=== PATIENT | male | born 1935 | race Caucasian/White ===

== ENCOUNTER 2019-09-15 15:21 | Emergency (ER) | payer MEDICARE ==
--- NOTE | 2019-09-15 15:42 | ERPHSYRPT ---
- History of Present Illness Time Seen by Provider: 09/15/19 15:41 Source: patient, family Patient Subjective Stated Complaint: pt here for a fall today, he was going to the dr when he he fell instead he was brought to the er, pt is yelling at staff and times, saying this is bullshit, im not hurt, he was brought in by cab and hes daughter followed him. he is a poor historian, denies any injury from fall Triage Nursing Assessment: pt alert, pt oriented to person,place and time, skin w/d/p. resp easy, chest clear, abd soft Physician History: This is an 84-year-old gentleman well who fell this morning at approximately 11: 30 AM. Called out and his daughter came to his attention. Able to lift him he was able to help himself up. Patient's daughter states that the patient has become more confused recently and has fallen more frequently. Type to the emergency room via a transportation service. Patient is very weak and confused. Eyes chest pain, denies abdominal pain, nausea vomiting diarrhea Occurred: just prior to arrival Reason for Fall: fell from standing pos Injuries/Pain Location: no injury Loss of Consciousness: no loss of consciousness Severity of Pain-Max: mild Severity of Pain-Current: mild (generalized) Associated Symptoms (Fall): confusion, dizziness Allergies/Adverse Reactions: No Known Drug Allergies Allergy (Unverified 09/15/19 17:27) Home Medications: Celecoxib 100 mg [celeBREX 100 MG] 1 ea DAILY 09/15/19 [History] Diazepam 1 ea TID 09/15/19 [History] Gabapentin 300 mg TID 09/15/19 [History] Hydrocodone/Acetaminophen [Lilly 10-325 Tablet] 1 ea QID 09/15/19 [History] Niacin [Niacin ER] 1 ea DAILY 09/15/19 [History] Ropinirole HCl 0.5 mg [Requip 0.5 MG] 1 ea DAILY 09/15/19 [History] Rosuvastatin Calcium 1 ea DAILY 09/15/19 [History] Tamsulosin HCl 1 ea DAILY 09/15/19 [History] Hx Influenza Vaccination/Date Given: Yes Hx Pneumococcal Vaccination/Date Given: Yes Immunizations Up to Date: Yes - Review of Systems Constitutional: No Symptoms Eyes: No Symptoms Ears, Nose, & Throat: No Symptoms Respiratory: No Symptoms Cardiac: No Symptoms Abdominal/Gastrointestinal: No Symptoms Genitourinary Symptoms: No Symptoms Musculoskeletal: Arthralgias, Fall, Myalgias Skin: No Symptoms Neurological: No Symptoms Psychological: No Symptoms Endocrine: No Symptoms Hematologic/Lymphatic: No Symptoms Immunological/Allergic: No Symptoms All Other Systems: Reviewed and Negative - Past Medical History Pertinent Past Medical History: Yes Neurological History: Dementia ENT History: No Pertinent History Cardiac History: No Pertinent History Respiratory History: No Pertinent History Endocrine Medical History: No Pertinent History Musculoskeletal History: No Pertinent History GI Medical History: No Pertinent History, GERD History: No Pertinent History Psycho-Social History: No Pertinent History Male Reproductive Disorders: No Pertinent History Other Medical History: post polio syndrome, restless syndrom - Past Surgical History Past Surgical History: Yes Neuro Surgical History: No Pertinent History Cardiac: No Pertinent History Respiratory: No Pertinent History Gastrointestinal: Appendectomy, Cholecystectomy Genitourinary: No Pertinent History Musculoskeletal: No Pertinent History Male Surgical History: No Pertinent History Other Surgical History: leg stent - Social History Smoking Status: Former smoker Exposure to second hand smoke: No Drug Use: none Patient Lives Alone: No - Nursing Vital Signs Nursing Vital Signs: Initial Vital Signs Temperature 98.0 F 09/15/19 15:32 Pulse Rate 83 09/15/19 15:32 Respiratory Rate 20 09/15/19 15:32 Blood Pressure 110/57 09/15/19 15:32 O2 Sat by Pulse Oximetry 92 L 09/15/19 15:32 Pain Scale Pain Intensity 0 - [place] Coma Score Best Eye Response ([place]): (4) open spontaneously Best Verbal Response ([place]): (5) oriented Best Motor Response ([place]): (6) obeys commands [place] Total: 15 - Physical Exam General Appearance: mild distress, lethargy Head Injury: no evidence of injury Eye Exam: PERRL/EOMI, eyes nml inspection ENT Exam: airway nml, nml ext.inspection Neck Exam: supple, trachea midline, full range of motion, normal alignment Respiratory/Chest Exam: normal breath sounds, No chest tenderness, No respiratory distress Cardiovascular Exam: normal heart sounds, regular rate/rhythm Gastrointestinal Exam: soft, normal bowel sounds, No tenderness Rectal Exam: not done Back Exam: normal inspection, normal range of motion, No CVA tenderness, No vertebral tenderness Extremity Exam: normal inspection, normal range of motion, pelvis stable Neurologic Exam: cooperative, laboratory supervisor II-XII nml as tested Skin Exam: normal color, warm, dry SpO2 Interpretation: borderline oxygenation SpO2: 92 - Course Nursing assessment & vital signs reviewed: Yes EKG Interpreted by Me: RATE (82), Sinus Rhythm, NORMAL AXIS, LAFB, NORMAL INTERVALS, 1st degree AV Block, Right Bundle Branch Block Ordered Tests: Active Orders 24 hr Category Date Time Status Catheter-[place] STAT Care 09/15/19 16:16 Active EKG-ER Only STAT Care 09/15/19 16:16 Active IV Insertion STAT Care 09/15/19 16:16 Active NPO (ED) STAT Care 09/15/19 16:16 Active Pulse Oximetry (ED) STAT Care 09/15/19 16:16 Active CHEST 1 VIEW (PORTABLE) Stat Exams 09/15/19 16:16 Completed HEAD WITHOUT CONTRAST [CT] Stat Exams 09/15/19 16:17 Completed ABG [ARTERIAL BLOOD GASES] Stat Lab 09/15/19 18:02 Completed ABG [ARTERIAL BLOOD GASES] Stat Lab 09/15/19 20:19 Completed BNP [NT PRO BNP] Stat Lab 09/15/19 15:40 Completed CBC W DIFF Stat Lab 09/15/19 15:40 Completed CMP Stat Lab 09/15/19 15:40 Completed CULTURE,URINE Stat Lab 09/15/19 16:30 Received Lactic Acid Stat Lab 09/15/19 16:16 Completed TROPONIN Q3H Lab 09/15/19 15:40 Completed TROPONIN Q3H Lab 09/15/19 19:50 Completed UA W/RFX UR CULTURE Stat Lab 09/15/19 16:30 Completed Medication Summary Generic Name Dose Route Start Last Admin Trade Name Freq PRN Reason Stop Dose Admin Sodium Chloride 1,000 mls @ 100 mls/hr 09/15/19 16:30 09/15/19 17:30 Sodium Chloride 0.9% 1000 Ml IV 10/15/19 16:29 100 mls/hr .Q10H NATTY Administration Sodium Chloride 1,000 mls @ 999 mls/hr 09/15/19 21:12 09/15/19 21:15 Sodium Chloride 0.9% 1000 Ml IV 09/15/19 22:12 999 mls/hr .Q1H1M STA Administration Discontinued Medications Generic Name Dose Route Start Last Admin Trade Name Freq PRN Reason Stop Dose Admin Naloxone HCl 0.4 mg 09/15/19 18:00 09/15/19 18:04 Narcan 0.4 Mg/Ml IV 09/15/19 18:01 0.4 mg STAT ONE Administration Naloxone HCl Confirm 09/15/19 18:03 Narcan 0.4 Mg/Ml Administered 09/15/19 18:04 Dose 0.4 mg .ROUTE .STK-MED ONE Lab/Rad Data: Laboratory Result Diagrams 09/15/19 15:40 09/15/19 15:40 Laboratory Results 09/15/19 09/15/19 09/15/19 Range/Units 20:19 19:50 18:02 WBC (4.0-10.5) K/mm3 RBC (4.1-5.6) M/mm3 Hgb (12.5-18.0) gm/dl Hct (42-50) % MCV (78-100) fl MCH (26-32) pg MCHC (32-36) g/dl RDW (11.5-14.0) % Plt Count (150-450) K/mm3 MPV (7.5-11.0) fl Gran % (36.0-66.0) % Eos # (Auto) (0-0.5) Absolute Lymphs (auto) (1.0-4.6) Absolute Monos (auto) (0.0-1.3) Lymphocytes % (24.0-44.0) % Monocytes % (0.0-12.0) % Eosinophils % (0.00-5.0) % Basophils % (0.0-0.4) % Absolute Granulocytes (1.4-6.9) Basophils # (0-0.4) Puncture Site RIGHT RADIAL RIGHT BRACHIAL pCO2 51 H 90 H* (35-45) mmHg pO2 159 H* 60 L (75-100) mmHg Base Excess 2.4 H -1.8 (-2.0-2.0) O2 Saturation 97.6 84.2 L (94-100) g/dF ABG pH 7.36 7.13 L* (7.35-7.45) ABG HCO3 28.8 H 29.9 H* (22-28) ABG O2 Sat (Measured) 99.6 85.9 L (95-100) % Jason Test YES NOT APPLICABLE A-a Gradient 98 541 a/A Ratio 0.62 0.10 Hemoglobin 10.2 11.7 Carboxyhemoglobin 1.4 1.6 (0.0-6.9) % THgb Methemoglobin 0.6 L 0.4 L (1.4-1.5) % Temperature 37.0 37.0 C POC O2 Flow Rate 45 100 % Inspiratory BiPAP 14 Expiratory BiPAP 6 Sodium (137-145) mmol/L Potassium 3.9 4.1 (3.5-5.1) mmol/L Chloride (98-107) mmol/L Carbon Dioxide (22-30) mmol/L Anion Gap (5-15) MEQ/L BUN (9-20) mg/dL Creatinine (0.66-1.25) mg/dL Estimated GFR ML/MIN Glucose (74-106) mg/dL Lactic Acid (0.4-2.0) Calcium (8.4-10.2) mg/dL Total Bilirubin (0.2-1.3) mg/dL AST (17-59) U/L ALT (0-50) U/L Alkaline Phosphatase (38-126) U/L Troponin I 0.034 (0.000-0.034) ng/mL NT-Pro-B Natriuret Pep (0-1800) pg/mL Serum Total Protein (6.3-8.2) g/dL Albumin (3.5-5.0) g/dL Urine Color (YELLOW) Urine Appearance (CLEAR) Urine pH (5-6) Ur Specific [place] (1.005-1.025) Urine Protein (Negative) Urine Ketones (NEGATIVE) Urine Blood (0-5) Boby/ul Urine Nitrite (NEGATIVE) Urine Bilirubin (NEGATIVE) Urine Urobilinogen (0-1) mg/dL Ur Leukocyte Esterase (NEGATIVE) Urine WBC (Auto) (0-5) /HPF Urine RBC (Auto) (0-2) /HPF U Epithel Cells (Auto) (FEW) /HPF Urine Bacteria (Auto) (NEGATIVE) /HPF Urine Mucus (Auto) (NEGATIVE) /HPF Urine Culture Reflexed (NO) Urine Glucose (NEGATIVE) mg/dL 09/15/19 09/15/19 09/15/19 Range/Units 16:30 16:16 15:40 WBC (4.0-10.5) K/mm3 RBC (4.1-5.6) M/mm3 Hgb (12.5-18.0) gm/dl Hct (42-50) % MCV (78-100) fl MCH (26-32) pg MCHC (32-36) g/dl RDW (11.5-14.0) % Plt Count (150-450) K/mm3 MPV (7.5-11.0) fl Gran % (36.0-66.0) % Eos # (Auto) (0-0.5) Absolute Lymphs (auto) (1.0-4.6) Absolute Monos (auto) (0.0-1.3) Lymphocytes % (24.0-44.0) % Monocytes % (0.0-12.0) % Eosinophils % (0.00-5.0) % Basophils % (0.0-0.4) % Absolute Granulocytes (1.4-6.9) Basophils # (0-0.4) Puncture Site pCO2 (35-45) mmHg pO2 (75-100) mmHg Base Excess (-2.0-2.0) O2 Saturation (94-100) g/dF ABG pH (7.35-7.45) ABG HCO3 (22-28) ABG O2 Sat (Measured) (95-100) % Jason Test A-a Gradient a/A Ratio Hemoglobin Carboxyhemoglobin (0.0-6.9) % THgb Methemoglobin (1.4-1.5) % Temperature C POC O2 Flow Rate % Inspiratory BiPAP Expiratory BiPAP Sodium (137-145) mmol/L Potassium (3.5-5.1) mmol/L Chloride (98-107) mmol/L Carbon Dioxide (22-30) mmol/L Anion Gap (5-15) MEQ/L BUN (9-20) mg/dL Creatinine (0.66-1.25) mg/dL Estimated GFR ML/MIN Glucose (74-106) mg/dL Lactic Acid 1.6 (0.4-2.0) Calcium (8.4-10.2) mg/dL Total Bilirubin (0.2-1.3) mg/dL AST (17-59) U/L ALT (0-50) U/L Alkaline Phosphatase (38-126) U/L Troponin I 0.046 H* (0.000-0.034) ng/mL NT-Pro-B Natriuret Pep (0-1800) pg/mL Serum Total Protein (6.3-8.2) g/dL Albumin (3.5-5.0) g/dL Urine Color SISI (YELLOW) Urine Appearance SLIGHTLY CLOUDY (CLEAR) Urine pH 5.0 (5-6) Ur Specific [place] 1.024 (1.005-1.025) Urine Protein 30 (Negative) Urine Ketones TRACE (NEGATIVE) Urine Blood NEGATIVE (0-5) Boby/ul Urine Nitrite NEGATIVE (NEGATIVE) Urine Bilirubin NEGATIVE (NEGATIVE) Urine Urobilinogen NEGATIVE (0-1) mg/dL Ur Leukocyte Esterase NEGATIVE (NEGATIVE) Urine WBC (Auto) 0-2 (0-5) /HPF Urine RBC (Auto) NONE (0-2) /HPF U Epithel Cells (Auto) RARE (FEW) /HPF Urine Bacteria (Auto) NONE (NEGATIVE) /HPF Urine Mucus (Auto) MANY (NEGATIVE) /HPF Urine Culture Reflexed NO (NO) Urine Glucose NEGATIVE (NEGATIVE) mg/dL 09/15/19 09/15/19 09/15/19 Range/Units 15:40 15:40 15:40 WBC 10.6 H (4.0-10.5) K/mm3 RBC 3.27 L (4.1-5.6) M/mm3 Hgb 11.3 L (12.5-18.0) gm/dl Hct 34.4 L (42-50) % MCV 105.2 H (78-100) fl MCH 34.6 H (26-32) pg MCHC 32.8 (32-36) g/dl RDW 16.6 H (11.5-14.0) % Plt Count 353 (150-450) K/mm3 MPV 10.1 (7.5-11.0) fl Gran % 89.0 H (36.0-66.0) % Eos # (Auto) 0 (0-0.5) Absolute Lymphs (auto) 0.47 L (1.0-4.6) Absolute Monos (auto) 0.67 (0.0-1.3) Lymphocytes % 4.4 L (24.0-44.0) % Monocytes % 6.3 (0.0-12.0) % Eosinophils % 0.0 (0.00-5.0) % Basophils % 0.3 (0.0-0.4) % Absolute Granulocytes 9.42 H (1.4-6.9) Basophils # 0.03 (0-0.4) Puncture Site pCO2 (35-45) mmHg pO2 (75-100) mmHg Base Excess (-2.0-2.0) O2 Saturation (94-100) g/dF ABG pH (7.35-7.45) ABG HCO3 (22-28) ABG O2 Sat (Measured) (95-100) % Jason Test A-a Gradient a/A Ratio Hemoglobin Carboxyhemoglobin (0.0-6.9) % THgb Methemoglobin (1.4-1.5) % Temperature C POC O2 Flow Rate % Inspiratory BiPAP Expiratory BiPAP Sodium 139 (137-145) mmol/L Potassium 3.5 (3.5-5.1) mmol/L Chloride 103 (98-107) mmol/L Carbon Dioxide 28 (22-30) mmol/L Anion Gap 11.8 (5-15) MEQ/L BUN 18 (9-20) mg/dL Creatinine 0.84 (0.66-1.25) mg/dL Estimated GFR > 60.0 ML/MIN Glucose 137 H (74-106) mg/dL Lactic Acid (0.4-2.0) Calcium 9.1 (8.4-10.2) mg/dL Total Bilirubin 0.70 (0.2-1.3) mg/dL AST 24 (17-59) U/L ALT 16 (0-50) U/L Alkaline Phosphatase 94 (38-126) U/L Troponin I (0.000-0.034) ng/mL NT-Pro-B Natriuret Pep 275 (0-1800) pg/mL Serum Total Protein 7.1 (6.3-8.2) g/dL Albumin 3.9 (3.5-5.0) g/dL Urine Color (YELLOW) Urine Appearance (CLEAR) Urine pH (5-6) Ur Specific [place] (1.005-1.025) Urine Protein (Negative) Urine Ketones (NEGATIVE) Urine Blood (0-5) Boby/ul Urine Nitrite (NEGATIVE) Urine Bilirubin (NEGATIVE) Urine Urobilinogen (0-1) mg/dL Ur Leukocyte Esterase (NEGATIVE) Urine WBC (Auto) (0-5) /HPF Urine RBC (Auto) (0-2) /HPF U Epithel Cells (Auto) (FEW) /HPF Urine Bacteria (Auto) (NEGATIVE) /HPF Urine Mucus (Auto) (NEGATIVE) /HPF Urine Culture Reflexed (NO) Urine Glucose (NEGATIVE) mg/dL - Progress Progress Note: 09/15/19 17:02 CAT scan of the head yields non-acute senile brain. Chest x-ray reveals a nonacute process, there are chronic changes. 09/15/19 20:19 Medical decision making: I spoke with Dr. Mann, the patient's primary care physician. I reviewed the patient's history, condition, lab, EKG, CAT scan, and x-ray of chest reports. Patient is clinically confused, has a high CO2 level, and an elevated troponin, patient primary care physician Dr. Mann feels that the patient would be best served at a tertiary facility. We will make arrangements for this. The differential diagnosis includes acute respiratory failure, congestive heart failure, myocardial infarction, COPD, O2 narcosis 09/15/19 21:04 I spoke with the patient and with the patient's daughter. The patient is becoming more alert. The patient desires to be transferred to [facility] in [facility] if transfer is necessary. Patient has has been evaluated by a bioinformatics analyst, Dr. Cohen, at [facility] in [place]. 09/15/19 21:09 09/15/19 21:[address] Romero, the hospitalist for [facility] in [place]. Viewed the patient's history, condition, lab, EKG, chest x-ray and CAT scan of the head report to him. He accepts the patient for transfer. Discussed with : Lottie Counseled pt/family regarding: lab results, diagnosis, rad results - Departure Departure Disposition: Home, Transfer Clinical Impression: Respiratory failure, CO2 narcosis, Confusion, Elevated troponin, Hypotension Condition: Fair Critical Care Time: Yes Critical Care Time(excluding separately billable procedures): Critical 30-74 mins Referrals: ANKITA MANN MD [Primary Care Provider] -
[2019-09-15] MEDS ORDERED: Sodium Chloride 0.9% 1000 ML 1,000 ML IV SCH (16:30)
[2019-09-15 16:43] LABS: Absolute Neutrophil Ct (ANC) 9.42 (1.4-6.9); BASOPHIL % 0.3 % (0.0-0.4); Basophil (Absolute #) 0.03 (0-0.4); Eosinophil (Absolute #) 0 (0-0.5); Hematocrit 34.4 % (42-50); Hemoglobin 11.3 gm/dl (12.5-18.0); Lymphocyte (Absolute #) 0.47 (1.0-4.6); Lymphocytes % 4.4 % (24.0-44.0); Mean Cell Volume 105.2 fl (78-100); Mean Corpuscular Hemoglobin 34.6 pg (26-32); Mean Corpuscular Hgb Concent. 32.8 g/dl (32-36); Mean Platelet Volume 10.1 fl (7.5-11.0); Monocyte (Absolute #) 0.67 (0.0-1.3); Monocytes % 6.3 % (0.0-12.0); Platelet Count 353 K/mm3 (150-450); Red Blood Count 3.27 M/mm3 (4.1-5.6); Red Cell Distribution Width 16.6 % (11.5-14.0); White Blood Count 10.6 K/mm3 (4.0-10.5)
--- NOTE | 2019-09-15 16:48 | XRAY ---
Indication: Confusion. Status post fall. Multiple contiguous axial images obtained through the head without contrast. Comparison: None Age-appropriate global atrophy and mild/moderate periventricular degenerative micro-ischemia bilaterally. No acute intracranial hemorrhage, abnormal extra-axial fluid collection, or mass effect. Fourth ventricle is midline without hydrocephalus. Bony calvarium intact. Visualized paranasal sinuses and mastoid air cells are clear. Impression: Nonacute senile brain.
--- NOTE | 2019-09-15 16:48 | XRAY ---
Indication: Fever. Confusion. Status post fall. Comparison: None Portable chest demonstrates borderline cardiomegaly, minimal right base subsegmental atelectasis/scarring, and a few tiny calcified granulomas. Remaining heart and lungs are unremarkable. Bony thorax intact with mild osteopenia and degenerative changes. Impression: Nonacute chest with chronic features.
[2019-09-15 16:50] LABS: Appearance SLIGHTLY CLOUDY (CLEAR); Bilirubin NEGATIVE (NEGATIVE); Blood NEGATIVE Ery/ul (0-5); Epithelial Cells RARE /HPF (FEW); Glucose NEGATIVE (NEGATIVE); Ketones TRACE (NEGATIVE); Leukocyte Esterase NEGATIVE (NEGATIVE); Mucus MANY /HPF (NEGATIVE); Nitrite NEGATIVE (NEGATIVE); Protein,Urine Dip 30 (Negative); Specific Gravity 1.024 (1.005-1.025); Urobilinogen NEGATIVE mg/dL (0-1); WBC 0-2 /HPF (0-5)
[2019-09-15 16:58] LABS: ALBUMIN 3.9 g/dL (3.5-5.0); ALKALINE PHOSPHATASE 94 U/L (38-126); ANION GAP 11.8 MEQ/L (5-15); BLOOD UREA NITROGEN 18 mg/dL (9-20); CHLORIDE 103 mmol/L (98-107); Calcium 9.1 mg/dL (8.4-10.2); Carbon Dioxide 28 mmol/L (22-30); Creatinine 1 0.84 mg/dL (0.66-1.25); Glucose 137 mg/dL (74-106); Potassium 3.5 mmol/L (3.5-5.1); SGOT/AST 24 U/L (17-59); SGPT/ALT 16 U/L (0-50); SODIUM 139 mmol/L (137-145); Total Protein 7.1 g/dL (6.3-8.2)
[2019-09-15] MEDS ORDERED: Sodium Chloride 0.9% 1000 ML 1,000 ML ONE ×2 (17:29→21:14)
[2019-09-15] MEDS ORDERED: Narcan 0.4 MG/ML IV ONE (18:00)
[2019-09-15] MEDS ORDERED: Narcan 0.4 MG/ML ONE (18:03)
[2019-09-15 18:10] LABS: A-aADO2 541; ABG HEMOGLOBIN 11.7; ABG POTASSIUM 4.1 (3.5-5.1); ARTERIAL BLD GAS O2 SATURATION 85.9 % (95-100); ARTERIAL BLOOD GAS BASE EXCESS -1.8 (-2.0-2.0); ARTERIAL BLOOD GAS FIO2 100 %; ARTERIAL BLOOD GAS PO2 60 mmHg (75-100); CARBOXYHEMOGLOBIN 1.6 % THgb (0.0-6.9); HCO3- 29.9 (22-28); HGB O2 SAT 84.2 g/dF (94-100); Methhemoglobin 0.4 % (1.4-1.5)
[2019-09-15 18:11] LABS: ARTERIAL BLOOD GAS pH 7.13 (7.35-7.45)
[2019-09-15 18:12] LABS: ABG SITE RIGHT BRACHIAL; ARTERIAL BLOOD GAS PCO2 90 mmHg (35-45)
[2019-09-15 20:20] LABS: A-aADO2 98; ABG HEMOGLOBIN 10.2; ABG POTASSIUM 3.9 (3.5-5.1); ARTERIAL BLD GAS O2 SATURATION 99.6 % (95-100); ARTERIAL BLOOD GAS BASE EXCESS 2.4 (-2.0-2.0); ARTERIAL BLOOD GAS FIO2 45 %; ARTERIAL BLOOD GAS PCO2 51 mmHg (35-45); ARTERIAL BLOOD GAS PO2 159 mmHg (75-100); ARTERIAL BLOOD GAS pH 7.36 (7.35-7.45); CARBOXYHEMOGLOBIN 1.4 % THgb (0.0-6.9); HCO3- 28.8 (22-28); HGB O2 SAT 97.6 g/dF (94-100); Methhemoglobin 0.6 % (1.4-1.5); paO2 pAO1 0.62
[2019-09-15 20:21] LABS: ABG SITE RIGHT RADIAL; ALLEN TEST OK? YES
[2019-09-15] MEDS ORDERED: Sodium Chloride 0.9% 1000 ML 1,000 ML IV STA (21:12)
[2019-09-15 21:25] VITALS: PULSE 61
[2019-09-15 22:11] LABS: Slide Review 1 YES
[2019-09-15 22:37] VITALS: BP 107/69; O2SAT 97
== END 2019-09-15 22:37 | disposition short-term general hospital (02) ==
LOC: ED 15:21
DX: J96.90 Respiratory failure, unspecified, unspecified whether with hypoxia or hypercapnia (principal); T59.7X1A Toxic effect of carbon dioxide, accidental (unintentional), initial encounter; R41.0 Disorientation, unspecified; R74.8 Abnormal levels of other serum enzymes; I95.9 Hypotension, unspecified
CPT/HCPCS: 36000; 36415; 36600; 51702; 70450; 71045; 80053; 81001; 82375; 82803; 83605; 83880; 84484; 85025; 87086; 93005; 94002; 94760; 96360; 96374; 99285; 99291; J2310